=== PATIENT | female | born 1960 | race Caucasian/White ===

== ENCOUNTER → 2019-12-20 | Outpatient (CLI) | payer BC ==
[~2019-12-20] MED LIST: LETR2.5T2 PO
--- NOTE | 2019-12-21 08:23 | RADONC ---
RADIATION ONCOLOGY CONSULTATION NOTE DATE: 12/20/2019 This is a telemedicine visit. The patient was informed of the risks including security breech, technological failure, inability to perform a comprehensive physical exam which could delay or prevent an accurate diagnosis, and potential complications from treatment decisions rendered over a telemedicine platform. The patient understands and consented to the use of telehealth services phone only. CHART: DIAGNOSIS: Right breast cancer. STAGE: I A, pT1c, pN1a, M0, grade 2, ER positive, KY positive, HER2/stephanie negative, Oncotype BX score 11. ECOG PERFORMANCE STATUS: 0. CONSULTATION NOTE: Ms. 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 HISTORY OF PRESENT ILLNESS: The patient was in her usual state of health who underwent screening mammography on October 17, 2019 which revealed a suspicious area in the inner lower quadrant of the right breast approximately 4.5 cm from the nipple. On 11/25/2019, the patient underwent lumpectomy and sentinel lymph node biopsy. Pathology revealed a 2 cm x 1.5 cm x 1.5 cm moderately differentiated invasive ductal carcinoma. The margins of resection were negative for malignancy with the closest margin being 4 mm, which was the anterior margin. There was no evidence of lymph vascular invasion. There was no skin involvement. In addition, two sentinel lymph nodes were sampled and one was positive for macro metastasis. There was no report of extranodal extension. The metastatic deposit was 6.5 mm. Once again, the tumor was estrogen receptor positive, progesterone receptor positive and HER2/stephanie negative. The patient had an Oncotype score of 11 and it was deemed that she would not benefit from systemic chemotherapy. She is therefore being referred to us for discussion of postoperative radiation therapy. ALLERGIES: The patient is allergic to PENICILLIN. PAST MEDICAL HISTORY: The patient's past medical history is positive for arthritis. In addition, the patient had an appendectomy, a cholecystectomy and carpal tunnel surgery. She has been in generally good health. SOCIAL HISTORY: The patient smokes one half-a-pack of cigarettes per day. She does not abuse alcohol. FAMILY HISTORY: The patient's family history is positive for sister with stomach cancer. REVIEW OF SYSTEMS: The patient's review of systems is noncontributory. Denies nausea, vomiting, fevers, chills, night sweats, diplopia, headaches, anxiety or depression, anorexia, weight loss, visual disturbances, chest pain, urinary or bowel difficulties, bone pain, or neurological problems. PHYSICAL EXAMINATION: IMPRESSION: Clearly, the patient is a candidate for external beam radiation therapy and I have so informed her. I have discussed with the patient in detail the potential benefits as well as possible acute and chronic sequelae of external beam radiation therapy. We have discussed the logistics of treatment planning, simulation and subsequent fractionated daily radiation treatments. I have scheduled the patient for the next available simulation slot and radiation treatments will begin subsequently. Thank you for allowing us to participate in the care of this very pleasant woman. If I could be of any further assistance or provide you with any information, please free to contact me AT anytime. As always, warm regards. cc: MD Mary Anne Rodriguez MD Monica Kwicklis, MD
== END ==
LOC: M ONCR 14:08
PROVIDERS: ATTEND Radiology Radiation Oncology
DX: C50.911 Malignant neoplasm of unspecified site of right female breast (principal)

== ENCOUNTER 2019-12-22 13:52 | Outpatient (RCR) | payer BC ==
--- NOTE | 2019-12-22 16:16 | RADONC ---
RADIATION ONCOLOGY SIMULATION NOTE DATE: 12/22/2019 CHART NUMBER: [id number] SIMULATION NOTE: Ms. Montalvo was taken to the CT scan for CT simulation of her right breast field. CT was accomplished without difficulty or discomfort. Radiation treatment planning is underway and radiation treatments will begin subsequently. An immobilization device was created and will be used throughout the course of treatment. It was created without difficulty or discomfort. I was physically present throughout the course of CT simulation.
== END 2019-12-29 ==
LOC: M ONCR 13:52
PROVIDERS: ATTEND Radiology Radiation Oncology
DX: C50.311 Malignant neoplasm of lower-inner quadrant of right female breast (principal)

== ENCOUNTER 2020-01-27 14:45 | Outpatient (RCR) | payer BC ==
--- NOTE | 2020-01-11 06:44 | RADONC ---
RADIATION ONCOLOGY PROGRESS NOTE DATE: 01/09/2020 CHART #: [id number] Ms. Montalvo is presently at a dose of 540 cGy to her right breast and is tolerating treatments quite well at this point with no complaints related to her radiation therapy. She continues have tenderness of the breast which she had since surgery. REVIEW OF SYSTEMS: The patient's review of systems is positive for breast tenderness and back discomfort from lying on the table but is otherwise noncontributory. Denies nausea, vomiting, fevers, chills, night sweats, diplopia, headaches, anxiety or depression, anorexia, weight loss, visual disturbances, chest pain, urinary or bowel difficulties, bone pain, or neurological problems. PHYSICAL EXAMINATION: The patient's skin is in good condition with no evidence of radiation change present. There is no moist or dry desquamation. The remainder of her physical exam remains unchanged. Ms. Montalvo is tolerating treatments quite well and radiation will continue as scheduled.
--- NOTE | 2020-01-19 09:44 | RADONC ---
RADIATION ONCOLOGY PROGRESS NOTE: DATE: 01/16/2020 CHART NUMBER: [id number] Ms. Montalvo is presently at a dose of 1400 cGy to her right breast and is tolerating treatments without difficulty She is continuing to complain of a sore right breast. This, however, is unchanged and she reports that the soreness in her breast that has been there since surgery. It was there at the time of consultation and it was there during simulation. It does not appear to be any worse. She has no other complaints at this time related to her radiation or disease. REVIEW OF SYSTEMS: Patient review of system is positive for her sore breast but is otherwise noncontributory She denies nausea, vomiting, fevers, chills, night sweats, diplopia, headaches, anxiety or depression, anorexia, weight loss, visual disturbances, chest pain, urinary or bowel difficulties, bone pain, or neurological problems. PHYSICAL EXAMINATION: The patient's skin is in excellent condition with no evidence of radiation change present. There is no moist or dry desquamation. The remainder of her physical exam remains unchanged. Mrs. Montalvo is tolerating her treatments well, although she continues to complain of discomfort over her surgical site. This does not correlate with any unusual physical findings.
[2020-02-06] MEDS ORDERED: SILV40CR EXT (15:19)
== END 2020-01-29 ==
LOC: M ONCR 14:45
PROVIDERS: ATTEND Radiology Radiation Oncology
DX: C50.311 Malignant neoplasm of lower-inner quadrant of right female breast (principal)

== ENCOUNTER 2020-02-21 14:43 | Outpatient (RCR) | payer BC ==
--- NOTE | 2020-02-01 09:46 | RADONC ---
RADIATION ONCOLOGY PROGRESS NOTE DATE: 01/24/2020 CHART NUMBER: [id number] PROGRESS NOTE: Ms. Montalvo is presently at a dose of 2347 cGy to her right breast and is tolerating treatments quite well at this point with no complaints related to her radiation therapy. She still continues to have tenderness of the breast but that was since surgery. REVIEW OF SYSTEMS: The patient's review of systems is positive for breast tenderness but is otherwise non contributory. Denies nausea, vomiting, fevers, chills, night sweats, diplopia, headaches, anxiety or depression, anorexia, weight loss, visual disturbances, chest pain, urinary or bowel difficulties, bone pain, or neurological problems. PHYSICAL EXAMINATION: The patient's skin is in good condition with no evidence of moist or dry desquamation. The remainder of her physical exam remains unchanged as well. Ms. Montalvo is tolerating treatments quite well and radiation will continue as scheduled.
--- NOTE | 2020-02-05 11:11 | RADONC ---
RADIATION ONCOLOGY PROGRESS NOTE DATE: 01/30/2020 CHART NUMBER: [id number] PROGRESS NOTE: Ms. Montalvo is presently at a dose of 3060 cGy to her right breast and is tolerating treatments quite well at this point with no complaints related to her radiation therapy. She continues have some breast tenderness, which is not new. REVIEW OF SYSTEMS: The patient's review of systems is positive for breast tenderness but is otherwise noncontributory. Denies nausea, vomiting, fevers, chills, night sweats, diplopia, headaches, anxiety or depression, anorexia, weight loss, visual disturbances, chest pain, urinary or bowel difficulties, bone pain, or neurological problems. PHYSICAL EXAMINATION: The patient's skin is in good condition with no evidence of moist or dry desquamation. The remainder of her physical exam remains unchanged. Ms. Montalvo is tolerating treatments quite well and radiation will continue as scheduled.
--- NOTE | 2020-02-10 07:45 | RADONC ---
RADIATION ONCOLOGY SIMULATION NOTE DATE: 02/06/2020 CHART #: [id number] Ms. Montalvo was taken to the linear accelerator today for clinical setup of her right breast electron beam boost field. Setup was accomplished without difficulty or discomfort. Radiation treatment planning is underway and radiation treatments will begin subsequently. An immobilization device was created without difficulty or discomfort. It will be used throughout the course of treatment. I was physically present throughout the course of clinical setup simulation.
--- NOTE | 2020-02-10 07:57 | RADONC ---
RADIATION ONCOLOGY PROGRESS NOTE DATE: 02/06/2020 CHART #: [id number] Ms. Montalvo is presently at a dose of 3960 cGy to her right breast and is tolerating treatments quite well at this point with no significant difficulties related to her radiation therapy other than some tenderness in the inframammary region. REVIEW OF SYSTEMS: The patient's review of systems is positive for some discomfort in the inframammary region, but is otherwise noncontributory. Denies nausea, vomiting, fevers, chills, night sweats, diplopia, headaches, anxiety or depression, anorexia, weight loss, visual disturbances, chest pain, urinary or bowel difficulties, bone pain, or neurological problems. PHYSICAL EXAMINATION: The patient's skin is in good condition with some erythema and a small area of desquamation in the inframammary region. The remainder of her physical exam remains unchanged. Ms. Montalvo is tolerating treatments quite well and radiation will continue as scheduled.
--- NOTE | 2020-02-15 12:42 | RADONC ---
RADIATION ONCOLOGY PROGRESS NOTE DATE: 02/13/2020 CHART #: [id number] Ms. Montalvo is presently at a dose of 4860 cGy to her right breast and is tolerating treatments quite well at this point with no significant difficulties related to her radiation therapy other than some skin discomfort. REVIEW OF SYSTEMS: The patient's review of systems is positive for some breast and skin discomfort, but is otherwise noncontributory. Denies nausea, vomiting, fevers, chills, night sweats, diplopia, headaches, anxiety or depression, anorexia, weight loss, visual disturbances, chest pain, urinary or bowel difficulties, bone pain, or neurological problems. PHYSICAL EXAMINATION: The patient's skin shows erythema and tanning present. There is a small area of desquamation present. The remainder of her physical exam remains unchanged. Ms. Montalvo is tolerating treatments quite well and radiation will continue to the boost site. The whole breast has been completed at this point.
[~2020-02-21 14:43] MED LIST changes: +SILV40CR EXT
--- NOTE | 2020-02-22 10:09 | RADONC ---
RADIATION ONCOLOGY DATE: 02/22/2020 CHART NUMBER: [id number] HISTORY OF PRESENT ILLNESS: Ms. Montalvo is a 59-year-old woman who carries the diagnosis of invasive ductal carcinoma of the right breast stage I A, PT1c, pN1a, M0, ER/MA positive, HER2/stephanie negative, oncotype DX score of 11, ECOG performance status 0. Ms. Montalvo is a 59-year-old woman who carries the diagnosis of stage I A right breast CA, ER/MA positive HER2/stephanie negative. She started radiation therapy to the right breast on 01/05/2020 and her last treatment was given on 02/21/2020 in 40 elapsed days. Initial 4860 cGy was delivered in 27 fractions using 6 MEV and 15 MEV mixed beam. An additional 1200 cGy in six fractions were delivered using 16 MEV electron beams. Her treatment was uneventful. She had developed moderate degree of skin erythema of skin mostly in the right inframammary area and right axillary area. Overall, she tolerated treatments well without any other side effect. We have discussed skin care and she was advised continuous followup care with the physician involved and she was also asked to return here in 1 month for a checkup. NERIS
--- NOTE | 2020-02-23 13:59 | RADONC ---
RADIATION ONCOLOGY DATE: 02/20/2020 CHART #: [id number] Ms. Montalvo is a 59-year-old lady who carries a diagnosis of invasive ductal carcinoma of the right breast. So far, she has received a dose of 5860 cGy in a 180 cGy daily fractures. Her treatment was uneventful. However, she developed a significant marked skin erythema, mostly in the inframammary area and right axillary area. REVIEW OF SYSTEMS: She has no other complaints other than the pain and discomfort with skin changes in her right breast. Denies any subjective symptoms, including nausea, vomiting, fever, chills or bone pain. PHYSICAL EXAMINATION: There is marked skin erythema in the right inframammary area and the right axilla. She is currently on Silvadene cream. I discussed skin care and she will have last day of treatment tomorrow. [facility]
== END 2020-02-28 ==
LOC: M ONCR 14:43
PROVIDERS: ATTEND Radiology Radiation Oncology
DX: C50.311 Malignant neoplasm of lower-inner quadrant of right female breast (principal)

== ENCOUNTER → 2020-03-21 | Outpatient (CLI) | payer BC ==
[~2020-03-21] MED LIST changes: +NAPR-885 PO; +VIAC1CHW PO
== END ==
LOC: M ONCR 11:14
PROVIDERS: ATTEND Radiology Radiation Oncology
DX: C50.311 Malignant neoplasm of lower-inner quadrant of right female breast (principal)